=== PATIENT | female | born 1975 | race Caucasian/White ===

== ENCOUNTER 2017-01-13 09:41 | Emergency (ER) | payer MEDICAID ==
[~2017-01-13] VITALS: Ht 167.6 cm; Wt 70.0 kg
[2017-01-13 09:42] VITALS: BP 112/77
== END 2017-01-13 12:10 | disposition home or self-care (01) ==
LOC: ER 10:05 → EDBD 10:05 → ER 12:10
DX: M25.562 Pain in left knee (principal)
CPT/HCPCS: 73562; 99284